=== PATIENT | male | born 1995 | race Caucasian/White ===

== ENCOUNTER 2023-12-21 13:55 | Emergency (ER) | payer MEDICAID ==
[~2023-12-21] VITALS: Ht 180.3 cm; Wt 86.0 kg
[2023-12-21 14:16] VITALS: O2SAT 97
[2023-12-21 18:15] VITALS: BP 136/83; PULSE 104; RESP 20
[2023-12-21] MEDS ORDERED: IBUPROFEN 600MG TABLET PO ONE (18:15)
[2023-12-21] MEDS ORDERED: BACITRACIN ZINC OINT UDPKT TOP ONE (18:15)
[2023-12-21] MEDS ORDERED: LIDOCAINE HCL/PF 1% 10 MG/ML 5ML VIAL INFIL ONE (18:15)
[2023-12-21] MEDS ORDERED: HYDROCODONE/ACETAMINOPHEN 5/325MG TABLET PO ONE (18:15)
[2023-12-21] MEDS ORDERED: ACETAMINOPHEN 325MG TABLET PO ONE (19:15)
[2023-12-21] MEDS ORDERED: CEPH500C2 MT (19:47)
[2023-12-21] MEDS ORDERED: SULF1TAB48 MT (19:47)
[2023-12-21 20:10] VITALS: TEMP 98.2
== END 2023-12-21 20:10 | disposition home or self-care (01) ==
LOC: ER 13:55
DX: L02.214 Cutaneous abscess of groin (principal)
CPT/HCPCS: 10060; 99283; J3490; Z7610 ×4